=== PATIENT | male | born 1975 | race Caucasian/White ===

== ENCOUNTER 2019-02-19 22:18 | Observation (INO) ==
[2019-02-19] MEDS ORDERED: NS 1,000 ML IV ONE ×3 (22:27→23:58)
--- NOTE | 2019-02-19 22:46 | PROVIDER DOCUMENTATION ---
This chart was entered by Alisia Cano Scribe, acting as scribe for Samir Hernandez MD. HPI-Syncope/Dizziness - General Chief Complaint: Fall Stated Complaint: FALL Time Seen by Provider: 02/19/19 22:21 Source: patient, family Allergies/Adverse Reactions: Patient Allergies Allergy/AdvReac Type Severity Reaction Status Date / Time No Known Allergies Allergy Verified 02/19/19 22:27 Home Medications: Home Medication List Medication Instructions Recorded Confirmed Last Taken Type Aspirin 162 mg PO DAILY 01/30/14 02/19/19 Unknown History Esomeprazole [Nexium] 40 mg PO DAILY 01/30/14 02/19/19 Unknown History Metoprolol Succinate E.r. [Toprol 25 mg PO DAILY 01/30/14 02/19/19 Unknown History Xl] - History of Present Illness-Syncope/Dizzy Nature of Presenting Problem: pt is a 43 yowm c/o dizziness, vomiting, intermittent fever, mild cough, syncope w/fall and lac to rt eye and large hematoma on occipital. pt sts he took nyquil tongiht. pt is hypotensive. triage note sts sts pt had 3 episodes of syncope today. pt is clammy. Prior Episodes: reports: multiple episodes today Onset/Duration: reports: unsure Timing: reports: still present Symptoms prior to episode: reports: nausea/vomiting. denies: chest pain Context: reports: lost consciousness Loss of Consciousness: unsure Location of injury. (If syncope resulted in an injury.): reports: head (rt eye, large hematoma occipital) Current Symptoms: reports: sweaty (clammy, hypotensive) - Dizziness Severity in ED: reports: moderate Dizziness Related Current/Associated Symptoms: reports: dizzy Any recent trauma/injury?: reports: to head (rt eye lac, large hematoma occipital) Patient usually:: reports: walks without assistance Review of Systems - Adult - REVIEW OF SYSTEMS - ADULT Constitutional: reports: see HPI, fever (intermittent), other (diaphoresis). denies: fatique, night sweats Eyes: reports: see HPI, other (lac rt eye). denies: discharge, double vision, eye pain Ears, Nose, Mouth & Throat: reports: no symptoms reported Cardiovascular: reports: no symptoms reported. denies: chest pain, irregular heart rate, palpitations Respiratory: reports: see HPI, cough. denies: pleurisy, shortness of breath, wheezing Gastrointestinal: reports: see HPI, vomiting. denies: abdominal pain, diarrhea, nausea, rectal bleeding Genitourinary: reports: no symptoms reported. denies: dysuria, discharge, hesitency Musculoskeletal: reports: no symptoms reported Integumentary: reports: see HPI, other (large hematoma occipital). denies: skin sores/ulcer, skin thickening Neurological: reports: see HPI, dizziness/vertigo, loss of balance, syncope (x3) . denies: numbness, paresthesia, tremors Psychiatric: reports: no symptoms reported Endocrine: reports: no symptoms reported Hematologic/Lymphatic: reports: no symptoms reported Allergic/Immunologic: reports: no symptoms reported All Other Systems: Reviewed and Negative Past History - Adult - PAST MEDICAL HISTORY-ADULT Review of Records: reports: Nursing Assessment Review, Medications Reviewed, Social history reviewed & non-contributory. Major Childhood Illnesses: reports: denies history Cardiovascular: reports: other (irreg heart rhythm) Respiratory: reports: denies history Gastrointestinal: reports: denies history Obstetrical/Gynecological: reports: denies history Genitourinary: reports: denies history Musculoskeletal: reports: denies history Neurological: reports: denies history Endocrine/Immune: reports: denies history Other Conditions: reports: denies history - PRIOR SURGERIES/PROCEDURES Surgical/Procedure History: reports: none - IMMUNIZATION STATUS Childhood Immunizations: See Nurse Assessment Flu Vaccine: See Nurse Assessment - FAMILY HISTORY Family History: reviewed, not pertinent - SOCIAL HISTORY Smoking: non-smoker Substance Use: none/never Physical Exam-General - PHYSICAL EXAM-ADULT Initial Vital Signs Reviewed: Yes - CONSTITUTIONAL General Appearance: mild distress, obese, slow to respond. negative: cachetic, anxious, combative - EYES Eyes: PERRL/EOMI, photophobia (bilat). negative: conjuctival exudate, subconjunctival hemorrhage, sunken eyes - HEAD, EARS, NOSE, MOUTH & THROAT HENMT: moist mucous membranes, other (semimoist mucous membranes, tenderness and swelling over posterior scalp) - NECK Neck: non-tender, full range of motion, supple, normal inspection - RESPIRATORY Respiratory: chest non-tender, lungs clear, normal breath sounds - CARDIOVASCULAR Cardiovascular: normal peripheral pulses, regular rate, rhythm - GASTROINTESTINAL (ABDOMEN) Abdominal Exam: normal bowel sounds, non tender, soft - MUSCULOSKELETAL Back Exam: normal inspection Extremity: normal range of motion, non-tender, normal inspection - SKIN Integumentary: normal color, normal turgor, diaphoresis, laceration(s) (rt eye), other (large hematoma occipital). negative: warm/dry - NEUROLOGIC Neurologic: grossly normal, no motor/sensory deficits - PSYCHIATRIC Psych/Mental Status: normal mood/affect, normal thought content, normal thought process, oriented x 3 Progress - PLAN OF CARE/RESULTS Progress/Plan/Lab Results: Vital Signs - 8 hr 02/19/19 22:24 02/19/19 22:51 Temperature 97.8 F 99.7 F H Pulse Rate 70 Respiratory Rate 16 Blood Pressure 99/64 O2 Sat by Pulse Oximetry 90 L Laboratory Results - last 24 hr 02/19/19 02/19/19 02/19/19 22:25 22:25 22:25 WBC 8.29 RBC 6.15 H Hgb 14.1 Hct 43.5 MCV 70.7 L MCH 22.9 L MCHC 32.4 L RDW Std Deviation 16.4 H Plt Count 221 MPV 11.1 H Immature Gran % (Auto) 0.4 Neut % (Auto) 61.4 Lymph % (Auto) 17.0 L [place] % (Auto) 13.4 H Eos % (Auto) 7.2 Baso % (Auto) 0.6 Immature Gran # (Auto) 0.03 Neut # (Auto) 5.09 Lymph # (Auto) 1.41 [place] # (Auto) 1.11 H Eos # (Auto) 0.60 Baso # (Auto) 0.05 Specimen Type Sample Site pH pCO2 pO2 HCO3 Base Excess Oxyhemoglobin ABG O2 Sat (Calculated) ABG O2 Saturation ABG Carboxyhemoglobin ABG Methemoglobin [place] Test A-a O2 Difference Total Hemoglobin Lactate Liter Flow Blood Gas Modality FiO2 % Sodium 135 L Potassium 4.2 Chloride 105 Carbon Dioxide 20 L Anion Gap 10 BUN 14 Creatinine 0.8 Estimated GFR/1.73 m2 > 60 BUN/Creatinine Ratio 18 Glucose 136 H Calculated Osmolality 273 Calcium 8.8 Magnesium Total Bilirubin 0.30 AST 22 ALT 18 Alkaline Phosphatase 72 Creatine Kinase Troponin T < 0.010 Total Protein 6.8 Albumin 4.3 Globulin 3.0 Albumin/Globulin Ratio 2.0 Plasma Lactate Urine Source Urine Color Urine Turbidity Urine pH Ur Specific [place] Urine Protein Ur Glucose (Stick) Ur Ketones (Stick) Urine Blood Urine Nitrite Urine Bilirubin Urobilinogen Dipstick Urine Leukocytes Urine WBC (Auto) Urine RBC (Auto) U Epithel Cells (Auto) Urine Bacteria (Auto) Urine Opiates Screen Ur Oxycodone Screen Urine Methadone Screen U Propoxyphene Qual Ur Barbituates Screen Ur Tricyclics Screen Ur Phencyclidine Scrn Ur Amphetamines Screen U Methamphetamines Scrn U Benzodiazepines Scrn Urine Cocaine Screen U Cannabinoids Screen Plasma/Serum Ethyl Alc Influenza A (Rapid) Influenza B (Rapid) Blood Type Antibody Screen 02/19/19 02/19/19 02/19/19 22:25 22:25 22:25 WBC RBC Hgb Hct MCV MCH MCHC RDW Std Deviation Plt Count MPV Immature Gran % (Auto) Neut % (Auto) Lymph % (Auto) [place] % (Auto) Eos % (Auto) Baso % (Auto) Immature Gran # (Auto) Neut # (Auto) Lymph # (Auto) [place] # (Auto) Eos # (Auto) Baso # (Auto) Specimen Type Sample Site pH pCO2 pO2 HCO3 Base Excess Oxyhemoglobin ABG O2 Sat (Calculated) ABG O2 Saturation ABG Carboxyhemoglobin ABG Methemoglobin [place] Test A-a O2 Difference Total Hemoglobin Lactate Liter Flow Blood Gas Modality FiO2 % Sodium Potassium Chloride Carbon Dioxide Anion Gap BUN Creatinine Estimated GFR/1.73 m2 BUN/Creatinine Ratio Glucose Calculated Osmolality Calcium Magnesium 1.8 Total Bilirubin AST ALT Alkaline Phosphatase Creatine Kinase 98 Troponin T Total Protein Albumin Globulin Albumin/Globulin Ratio Plasma Lactate 0.8 Urine Source Urine Color Urine Turbidity Urine pH Ur Specific [place] Urine Protein Ur Glucose (Stick) Ur Ketones (Stick) Urine Blood Urine Nitrite Urine Bilirubin Urobilinogen Dipstick Urine Leukocytes Urine WBC (Auto) Urine RBC (Auto) U Epithel Cells (Auto) Urine Bacteria (Auto) Urine Opiates Screen Ur Oxycodone Screen Urine Methadone Screen U Propoxyphene Qual Ur Barbituates Screen Ur Tricyclics Screen Ur Phencyclidine Scrn Ur Amphetamines Screen U Methamphetamines Scrn U Benzodiazepines Scrn Urine Cocaine Screen U Cannabinoids Screen Plasma/Serum Ethyl Alc Influenza A (Rapid) Influenza B (Rapid) Blood Type Antibody Screen 02/19/19 02/19/19 02/19/19 22:25 22:25 22:35 WBC RBC Hgb Hct MCV MCH MCHC RDW Std Deviation Plt Count MPV Immature Gran % (Auto) Neut % (Auto) Lymph % (Auto) [place] % (Auto) Eos % (Auto) Baso % (Auto) Immature Gran # (Auto) Neut # (Auto) Lymph # (Auto) [place] # (Auto) Eos # (Auto) Baso # (Auto) Specimen Type Sample Site pH pCO2 pO2 HCO3 Base Excess Oxyhemoglobin ABG O2 Sat (Calculated) ABG O2 Saturation ABG Carboxyhemoglobin ABG Methemoglobin [place] Test A-a O2 Difference Total Hemoglobin Lactate Liter Flow Blood Gas Modality FiO2 % Sodium Potassium Chloride Carbon Dioxide Anion Gap BUN Creatinine Estimated GFR/1.73 m2 BUN/Creatinine Ratio Glucose Calculated Osmolality Calcium Magnesium Total Bilirubin AST ALT Alkaline Phosphatase Creatine Kinase Troponin T Total Protein Albumin Globulin Albumin/Globulin Ratio Plasma Lactate Urine Source Urine Color Urine Turbidity Urine pH Ur Specific [place] Urine Protein Ur Glucose (Stick) Ur Ketones (Stick) Urine Blood Urine Nitrite Urine Bilirubin Urobilinogen Dipstick Urine Leukocytes Urine WBC (Auto) Urine RBC (Auto) U Epithel Cells (Auto) Urine Bacteria (Auto) Urine Opiates Screen Ur Oxycodone Screen Urine Methadone Screen U Propoxyphene Qual Ur Barbituates Screen Ur Tricyclics Screen Ur Phencyclidine Scrn Ur Amphetamines Screen U Methamphetamines Scrn U Benzodiazepines Scrn Urine Cocaine Screen U Cannabinoids Screen Plasma/Serum Ethyl Alc Influenza A (Rapid) POSITIVE A Influenza B (Rapid) NEGATIVE Blood Type A POSITIVE Antibody Screen NEGATIVE 02/19/19 02/19/19 02/19/19 22:45 22:45 23:40 WBC RBC Hgb Hct MCV MCH MCHC RDW Std Deviation Plt Count MPV Immature Gran % (Auto) Neut % (Auto) Lymph % (Auto) [place] % (Auto) Eos % (Auto) Baso % (Auto) Immature Gran # (Auto) Neut # (Auto) Lymph # (Auto) [place] # (Auto) Eos # (Auto) Baso # (Auto) Specimen Type ARTERIAL Sample Site R RADIAL pH 7.41 pCO2 38 pO2 81 HCO3 24.6 Base Excess -0.3 Oxyhemoglobin 94.3 L ABG O2 Sat (Calculated) 18.1 ABG O2 Saturation 96.9 ABG Carboxyhemoglobin 1.60 ABG Methemoglobin 1.1 [place] Test YES A-a O2 Difference 85.0 Total Hemoglobin 13.6 Lactate 0.60 Liter Flow 2.5 Blood Gas Modality [place] FiO2 % 30.0 Sodium Potassium Chloride Carbon Dioxide Anion Gap BUN Creatinine Estimated GFR/1.73 m2 BUN/Creatinine Ratio Glucose Calculated Osmolality Calcium Magnesium Total Bilirubin AST ALT Alkaline Phosphatase Creatine Kinase Troponin T Total Protein Albumin Globulin Albumin/Globulin Ratio Plasma Lactate Urine Source CLEAN CATCH Urine Color YELLOW Urine Turbidity CLEAR Urine pH 8.0 Ur Specific [place] 1.026 Urine Protein TRACE A Ur Glucose (Stick) NEGATIVE Ur Ketones (Stick) NEGATIVE Urine Blood NEGATIVE Urine Nitrite NEGATIVE Urine Bilirubin NEGATIVE Urobilinogen Dipstick NORMAL Urine Leukocytes NEGATIVE Urine WBC (Auto) <10 Urine RBC (Auto) <10 U Epithel Cells (Auto) <10 Urine Bacteria (Auto) NEGATIVE Urine Opiates Screen NONE DETECTED Ur Oxycodone Screen NONE DETECTED Urine Methadone Screen NONE DETECTED U Propoxyphene Qual NONE DETECTED Ur Barbituates Screen NONE DETECTED Ur Tricyclics Screen NONE DETECTED Ur Phencyclidine Scrn NONE DETECTED Ur Amphetamines Screen NONE DETECTED U Methamphetamines Scrn NONE DETECTED U Benzodiazepines Scrn NONE DETECTED Urine Cocaine Screen NONE DETECTED U Cannabinoids Screen NONE DETECTED Plasma/Serum Ethyl Alc Influenza A (Rapid) Influenza B (Rapid) Blood Type Antibody Screen Orders Category Date Time Status Admit - [facility] Routine AdmDCTranf 02/19/19 23:58 Active Activity - Strict Bedrest ORDERED Care 02/19/19 23:58 Active Cardiac Monitoring DIRECTED Care 02/19/19 22:24 Active Core Temperature ORDERED Care 02/19/19 22:28 Active FSBS/Accucheck Result NOW Care 02/19/19 22:27 Active Kam Cath Insertion ORDERED Care 02/19/19 22:53 Active Neurological Check Q4H Care 02/20/19 00:04 Active Oxygen Therapy- ED Nursing DIRECTED Care 02/19/19 23:57 Active Resuscitation Status Routine Care 02/19/19 23:58 Ordered Z-Document. for Tele Applied ORDERED Care 02/20/19 00:04 Active NPO Diet 02/20/19 00:05 Active CHEST-PORTABLE [RAD] Stat Exams 02/19/19 22:[address] HEAD W/O CONTRAST [CT] Stat Exams 02/19/19 22:40 Taken ABG [RESP] Routine Lab 02/19/19 23:48 Ordered ALCOHOL BLOOD Stat Lab 02/19/19 22:25 Completed BLOOD CULTURE [BLDCUL] Stat Lab 02/19/19 22:29 Ordered CBC WITH ELECTRONIC DIFF [HEME] Stat Lab 02/19/19 22:25 Completed CK PROFILE [SP CHEM] Stat Lab 02/19/19 22:25 Completed CMP [COMPREHENSIVE METABOLIC PANEL] [CHEM] Stat Lab 02/19/19 22:[address] Stat Lab 02/19/19 22:35 Completed LACTATE, PLASMA [CHEM] Stat Lab 02/19/19 22:25 Completed MAGNESIUM [CHEM] Stat Lab 02/19/19 22:25 Completed TROPONIN T Stat Lab 02/19/19 22:25 Completed TYPE & SCREEN [BBK] Stat Lab 02/19/19 22:25 Completed URINALYSIS W/POSS RFLX CULT [URINALYSIS] Stat Lab 02/19/19 22:45 Completed URINE DRUG SCREEN PL Stat Lab 02/19/19 22:45 Completed 0.9% Sodium Chloride Inj [Ns] 1,000 ml Med 02/19/19 23:58 Active IV 125 mls/hr 0.9% Sodium Chloride Inj [Ns] 1,000 ml Med 02/19/19 22:27 Discontinued IV 999 mls/hr 0.9% Sodium Chloride Inj [Ns] 1,000 ml Med 02/19/19 23:28 Active IV 999 mls/hr Acetaminophen [Tylenol] Med 02/19/19 23:58 Active 650 mg PO Q6H PRN PRN Ibuprofen [Motrin] Med 02/19/19 23:34 Discontinued 600 mg PO NOW ONE Levofloxacin 750 mg/D5w [Levaquin 750 mg/D5w] Med 02/19/19 23:48 Active 750 mg in 150 ml IV NOW Ondansetron [Zofran] Med 02/19/19 23:58 Ordered 4 mg IV Q4H PRN PRN Oseltamivir [Tamiflu] Med 02/20/19 09:00 Ordered 75 mg PO BID Oseltamivir [Tamiflu] Med 02/19/19 23:29 Discontinued 75 mg PO NOW ONE Piperacillin/Tazobactam [Zosyn] 3.375 gm Med 02/19/19 23:58 Active 0.9% Sodium Chloride Inj [Ns] 50 ml IV NOW Oxygen Device Routine Oth 02/20/19 00:04 Active Pulse Oximetry Stat Oth 02/20/19 00:06 Active Telemetry [OM.EQ] Routine Oth 02/19/19 23:58 Active EKG [EKG] Stat Ther 02/19/19 22:27 Ordered Transfer/Admit Order [TRANSFER] Routine Transfer 02/20/19 00:06 Ordered Result Diagrams: 02/19/19 22:25 02/19/19 22:25 - EKG 1 Time of EKG reading by physician:: 22:36 EKG Read and Signed by:: Samir Hernandez EKG Interpretation (*Must complete 3 of following elements*): Normal Rate: 82 Rhythm: NSR w/SA [place]: normal QRS: normal [place] Interval: normal ST Wave: normal - XRAY 1 XRAY Study: Chest Impression: Abnormal, See EMR Report (Impression: 1. rt lower lobe infiltrate) - CT/MRI 1 CT Study: Head CT Results: NAD - CONSULTS/PCP/HOSPITALIST Notification #1 *Consult/PCP/Hospitalist*: Dr. Martinez, hospitalist Time Discussed: 23:50 Reason/Comments: start IV Zosyn Consult Disposition: Admit Departure - Departure Date of Disposition Decision: 02/20/19 Time of Disposition Decision: 00:09 DIAGNOSIS: Influenza A Pneumonia Qualifiers: Pneumonia type: due to unspecified organism Laterality: right Lung location: lower lobe of lung Qualified Code(s): J18.1 - Lobar pneumonia, unspecified organism Altered mental status Qualifiers: Altered mental status type: unspecified Qualified Code(s): R41.82 - Altered mental status, unspecified Disposition: ADMITTED INPATIENT 09 Certified Medical Emergency: Emergent Condition: Stable Referrals and Follow-Ups: None,PCP [Primary Care Provider] - - Critical Care Note This patient required my direct & personal management of CC.: No Attestation - Physician/ ORI Attestation Patient care was provided by Advanced Practice Provider:: No The physician spent face to face time with patient:: Yes Advanced Practice Provider documentation review:: Supervising physician onsite and consulted in the evaluation and care of this patient. The physician did have a face to face encounter with the patient. This chart was documented by the indicated scribe, (Alisia Cano Scribe) and accurately reflects the services I performed and decisions made by me, Samir Hernandez MD, as attested by the provider's signature.
[2019-02-19 22:51] LABS: BASO# 0.05 X1000 (0.0-0.2); BASO% 0.6 % (0.0-0.8); EOS% 7.2 % (0.0-10.0); HEMATOCRIT 43.5 % (42.0-52.0); HEMOGLOBIN 14.1 g/dL (14.0-18.0); IMM GRAN# 0.03 X1000 (0.0-0.04); IMM GRAN% 0.4 % (0.0-0.5); LYMPH# 1.41 X1000 (1.2-3.4); MCH 22.9 PG (27-31); MCHC 32.4 g/dL (33-37); MCV 70.7 FL (81-99); MONO# 1.11 X1000 (0.11-0.59); MONO% 13.4 % (1.7-9.3); MPV 11.1 FL (7.4-10.4); NEUT# 5.09 X1000 (1.4-6.5); NEUT% 61.4 % (42.2-75.2); PLT 221 X1000 (130-400); RBC 6.15 XMIL (4.7-6.1); RDW 16.4 % (11.5-14.5); WBC 8.29 X1000 (4.8-10.8)
[2019-02-19 22:56] LABS: URINE SOURCE CLEAN CATCH
[2019-02-19 23:04] LABS: AGAP 10; ALBUMIN 4.3 g/dL (3.5-5.0); ALKALINE PHOSPHATASE 72 U/L (32-122); BUN 14 mg/dL (8-22); CALCIUM 8.8 mg/dL (8.8-10.2); CHLORIDE 105 mmol/L (98-107); COSMO 273; CREATININE 0.8 mg/dL (0.7-1.2); ESTIMATED GFR > 60; GLUCOSE 136 mg/dL (70-104); GOT 22 U/L (10-34); GPT 18 U/L (10-44); POTASSIUM 4.2 mmol/L (3.5-5.1); SODIUM 135 mmol/L (136-145); TCO2 20 mmol/L (25-35); TOTAL PROTEIN 6.8 g/dL (6.3-8.3)
[2019-02-19 23:15] LABS: BILIRUBIN URINE NEGATIVE (NEGATIVE); BLOOD URINE NEGATIVE (NEGATIVE); COLOR YELLOW; GLUCOSE URINE NEGATIVE (NEGATIVE); KETONE URINE NEGATIVE (NEGATIVE); LEUKOCYTES URINE NEGATIVE (NEGATIVE); NITRITE URINE NEGATIVE (NEGATIVE); PROTEIN URINE TRACE mg/dL (NEGATIVE); SP GRAVITY URINE 1.026; TURBIDITY URINE CLEAR (CLEAR); UROBILINOGEN URINE NORMAL (NORMAL)
[2019-02-19 23:16] LABS: UR EPITHELIAL CELLS <10 /HPF (<10); URINE BACTERIA NEGATIVE /HPF; URINE RBC <10 /HPF (<10); URINE WBC <10 /HPF (<10)
[2019-02-19 23:17] LABS: UR AMPHETAMINES QUAL NONE DETECTED (NONE DETECT); UR BARBITUATES QUAL NONE DETECTED (NONE DETECT); UR BENZODIAZEPIN QUAL NONE DETECTED (NONE DETECT); UR CANNABINOIDS QUAL NONE DETECTED (NONE DETECT); UR COCAINE QUAL NONE DETECTED (NONE DETECT); UR METHADONE QUAL NONE DETECTED (NONE DETECT); UR METHAMPHETAMINE QUAL NONE DETECTED (NONE DETECT); UR OPIATES QUAL NONE DETECTED (NONE DETECT); UR OXYCODONE QUAL NONE DETECTED (NONE DETECT); UR PCP QUAL NONE DETECTED (NONE DETECT); UR PROPOXYPHENE QUAL NONE DETECTED (NONE DETECT); UR TCA QUAL NONE DETECTED (NONE DETECT)
[2019-02-19 23:21] LABS: INFLUENZA A POSITIVE (NEGATIVE); INFLUENZA B NEGATIVE (NEGATIVE)
[2019-02-19] MEDS ORDERED: TAMIFLU PO ONE (23:29)
[2019-02-19] MEDS ORDERED: MOTRIN PO ONE (23:34)
[2019-02-19] MEDS ORDERED: LEVAQUIN 750 MG/D5W 750 MG/150 ML IVPB IV ONE (23:48)
[2019-02-19] MEDS ORDERED: ZOFRAN IV PRN (23:58)
[2019-02-19] MEDS ORDERED: TYLENOL PO PRN (23:58)
[2019-02-19] MEDS ORDERED: ZOSYN 3.375 GM in NS 50 ML IV ONE (23:58)
[2019-02-20 00:04] LABS: BE -0.3 mmoll (-3.0-3.0); BLOOD TYPE ARTERIAL; HCO3-(ACT) 24.6 mmoll (20.0-26.0); METHB 1.1 % (0.0-1.5); O2(CT) 18.1 mL/dL (15.0-23.0); O2HB 94.3 % (95.0-99.0); PCO2(98.6) 38 mmHg (35-45); PO2(98.6) 81 mmHg (60-100); SAMPLE BLOOD; SAO2 96.9 % (95.0-100.0); THB 13.6 g/dL (11.5-17.4); pH(98.6) 7.41 (7.35-7.45)
[2019-02-20 00:07] LABS: ALLEN TEST YES; MODALITY CANNULA
--- NOTE | 2019-02-20 01:04 | EKG Report ---
Test Performed on : 02/19/2019 10:35:53 PM Test Reason : pain Blood Pressure : / mmHG Vent. Rate : 082 BPM Atrial Rate : 082 BPM P-R Int : 168 ms QRS Dur : 090 ms QT Int : 378 ms P-R-T Axes : 046 040 057 degrees QTc Int : 441 ms Normal sinus rhythm. with sinus arrhythmia. Normal ECG When compared with ECG of 26-JUL-2015 14:01, No significant change was found Unconfirmed Result
--- NOTE | 2019-02-20 06:53 | Diag Imaging Result Doc PS360 ---
EXAM: CT HEAD W/O CONTRAST - 02/19/2019 HISTORY: head injury with decreased LOC TECHNIQUE: CT head without contrast COMPARISON: None. FINDINGS: There is no evidence of intracranial hemorrhage, mass effect, midline shift, or hydrocephalus. There is no evidence of infarct, although acute infarcts may not be immediately visible. There is no evidence of skull fracture. There is paranasal sinus disease noted with mild mucosal thickening in bilateral ethmoids and fluid in the visualized superior most right maxillary sinus. The visualized mastoid air cells are clear. IMPRESSION: No visible acute intracranial abnormality. No evidence of intracranial injury. There is some paranasal sinus disease noted at the right maxillary sinus and bilateral ethmoids. The on-call radiologist provided preliminary results at 11:42 PM on 02/19/2019. This exam was performed using automated exposure control, adjustment of mA or kV according to patient size, and/or use of iterative reconstruction technique. Electronically signed by Jeison Hope 02/20/2019 6:50 AM
--- NOTE | 2019-02-20 07:18 | Diag Imaging Result Doc PS360 ---
EXAM: CHEST-PORTABLE - 02/19/2019 HISTORY: diaphoresis, dizziness TECHNIQUE: Portable chest COMPARISON: 07/26/2015 FINDINGS: Inspiration is somewhat shallow. Allowing for inspiration, lungs appear grossly clear. There is no consolidation, pleural effusion, or pneumothorax identified. Heart size appears normal. IMPRESSION: Somewhat shallow inspiration. No other evidence of acute disease. Electronically signed by Jeison Hope 02/20/2019 7:16 AM
[2019-02-20] MEDS: TAMIFLU PO SCH ×2 (09:25→20:07)
[2019-02-20] MEDS ORDERED: DUONEB (A & A) INH PRN (09:40)
[2019-02-20] MEDS ORDERED: NEXIUM PO SCH (09:45)
[2019-02-20] MEDS: BACTROBAN OINTMENT TOP SCH ×2 (10:33→20:07)
[2019-02-20] MEDS: ASPIRIN PO SCH (10:35)
[2019-02-20] MEDS: TOPROL XL PO SCH (10:35)
[2019-02-20] MEDS: NS 1,000 ML IV SCH (10:36)
[2019-02-20 11:03] LABS: HEMOGLOBIN A1C 5.7 % (4.8-6.0)
[2019-02-20 11:19] LABS: FREE T4 0.84 ng/dL (0.93-1.70); TSH 0.63 uIUmL (0.27-4.20)
--- NOTE | 2019-02-20 12:05 | EKG Report ---
Test Performed on : 02/20/2019 11:18:34 AM Test Reason : syncope Blood Pressure : / mmHG Vent. Rate : 074 BPM Atrial Rate : 074 BPM P-R Int : 176 ms QRS Dur : 090 ms QT Int : 384 ms P-R-T Axes : 047 043 046 degrees QTc Int : 426 ms Normal sinus rhythm. Normal ECG When compared with ECG of 19-FEB-2019 22:35, (Unconfirmed) No significant change was found Confirmed by Amos Rodriguez MD ([id number]) on 02/23/2019 9:31:46 PM
--- NOTE | 2019-02-20 13:09 | ECHO REPORT ---
ORDER DATE: 02/20/2019 MEASUREMENTS: 1. Septal thickness 1.1. 2. Left ventricular internal diameter end-diastole 5. 3. Posterior wall thickness 1.1. 4. Left atrium 4.2. 5. Right atrium, 3.7. 6. Aortic root 3.4. 7. Left atrium 4. SUMMARY: 1. Very difficult study for interpretation due to very limited acoustic window quality. 2. Aortic valve is not well imaged, but appears to open adequately on 2-dimensional images. Peak gradient across aortic valve is less than 10 mmHg. Mitral and tricuspid valves are without gross structural abnormality. Pulmonic valve is not well demonstrated. Aortic root is normal size. 3. Grossly normal left ventricular dimensions demonstrated. Estimated left ejection fraction appears to be at least 55%. No obvious wall motion abnormality can be appreciated. Left atrium is borderline enlarged. Right atrium and right ventricle are grossly normal in size with grossly preserved right ventricular systolic function. 4. No pericardial effusion. 5. Appearance of inferior vena cava suggests normal central venous pressure. cc: MD Patricia Adkins CRNP
--- NOTE | 2019-02-20 15:49 | Vascular Study Report ---
EXAM: Carotid Ultrasound - 02/20/2019 HISTORY: syncope TECHNIQUE: Carotid flow studies COMPARISON: None. FINDINGS: There is no substantial atherosclerotic plaquing identified in the right carotid system. Maximum systolic velocity in the right internal carotid is 64 cm/s, and maximum diastolic velocity is 27 cm/s. The right internal to common carotid systolic velocity ratio is 0.5. The flow velocities and ratio are consistent with 0-39% stenosis at the right internal carotid. The right vertebral demonstrates antegrade flow. There is no substantial atherosclerotic plaque identified in the left carotid system. Maximum systolic velocity in the left internal carotid is 65 cm/s, and maximum diastolic velocity is 26 cm/s. The left internal to common carotid systolic velocity ratio is 0.4. The flow velocities and ratio are consistent with 0-39% stenosis at the left internal carotid. The left vertebral demonstrates antegrade flow. IMPRESSION: 0-39% stenosis at right internal carotid. 0-39% stenosis at left internal carotid. Electronically signed by Jeison Hope 02/20/2019 3:46 PM
--- NOTE | 2019-02-20 18:00 | HISTORY AND PHYSICAL ---
PRIMARY CARE PROVIDER: None. PRIMARY PET CARE ASSOCIATE: Dr. Butcher. CHIEF COMPLAINT: Passed out, head congestion, fever and body aches. HISTORY OF PRESENT ILLNESS: Mr. William Chiang is a 43-year-old male with a medical history of atrial fibrillation, hypertension and GERD, who is now here with 3 syncopal spells at home. He states that symptoms started on Saturday afternoon of head congestion, body aches and fever. Then yesterday when he had tried to get up, he hit the floor. According to the notes from the , he had done this 3 separate times, and she called 911. He does not really remember this. He has a very small head laceration above the right eyebrow. No other head injuries noted. He did test positive for the flu, influenza A, and has been started on Tamiflu. There is an old echocardiogram that was performed in 2014. It showed an ejection fraction of 50%, but did also show a slightly dilated left ventricle, so we will go ahead and get an echocardiogram to re- evaluate heart function and heart size. We will get a carotid ultrasound. Continue him on some IV fluids. Hopefully he can be discharged tomorrow. PAST MEDICAL HISTORY: 1. GERD. 2. Hypertension. 3. Paroxysmal atrial fibrillation, only on aspirin and beta-sherry. 4. Slightly dilated left ventricle with preserved heart function from 2015. PAST SURGICAL HISTORY: 1. Back surgery. 2. Lazy eye surgery at the age of 7. SOCIAL HISTORY: He quit smoking in 2000. He started smoking at age 18, was less than 1 pack per day. He works for the [employer]. with children. FAMILY HISTORY: Mother: No medical conditions. Father: Stroke and prostate cancer. ALLERGIES: No known drug allergies. HOME MEDICATIONS: 1. Aspirin 162 mg p.o. daily. 2. Nexium 40 mg p.o. daily. 3. Toprol-XL 25 mg p.o. daily. REVIEW OF SYSTEMS: Fourteen-point review of systems are complete and all were negative except for those mentioned in above HPI. He does have pain in the right eyebrow area and a little headache. He also states he does not remember passing out. He did get nauseated last night after taking his first dose of Tamiflu, and he threw up. PHYSICAL EXAMINATION: VITAL SIGNS: Temperature 98.4 degrees, heart rate 73, respiratory rate 18, blood pressure 149/76, O2 saturation 98% on room air. GENERAL: Mr. William Chiang is a 43-year-old male. He is in no acute distress. He is able to answer questions appropriately. HEENT: Right eyebrow swelling and maybe 1 cm laceration, not significant enough for sutures. There is dry blood and there is some bruising and swelling around the area. Normocephalic. Pupils equal, round and reactive to light. Extraocular movements intact. Mucous membranes are moist. NECK: Trachea midline. CARDIOVASCULAR: S1, S2. Regular rate and rhythm. No rubs, gallops or murmurs. No lower extremity edema. Dorsalis and radial pulses +2. Negative JVD or carotid bruits. PULMONARY: Clear to auscultation, bilateral breath sounds. No accessory muscle use or work of breathing noted. GASTROINTESTINAL: Soft, nontender, nondistended. Positive bowel sounds x4. EXTREMITIES: Moves all extremities equally. Full range of motion. NEUROLOGIC: A and O x3. Follows commands. Sensory is intact. SKIN: Warm, dry and intact, except for above the right eyebrow. LABORATORY DATA: White blood cells 8000, hemoglobin 14, hematocrit 43, platelet count 221,000. ABGs on 2.5 L of oxygen: PH 7.41, pCO2 is 38, pO2 is 81, bicarbonate 24, base excess -0.3, saturation 94%. Lactate 0.6. Sodium 135, potassium 4.2, BUN 14, creatinine 0.8, glucose 136. Hemoglobin A1c is 5.7. Magnesium 1.8, bilirubin 0.30, AST 22, ALT 18. CK 98, troponin less than 0.01. Triglycerides 68, total cholesterol 133. Serum lactate 0.8. TSH 0.63, free T4 is 0.84. Urine drug screen negative. Positive influenza A. Urinalysis: Trace protein. DIAGNOSTIC DATA: EKG: Normal sinus rhythm, rate 82, QTc 441. Chest x-ray: Somewhat shallow inspiration, no acute disease. Head CT: No acute abnormalities. There is some paranasal sinus disease noted in the right maxillary sinus and bilateral ethmoids. Another EKG: Normal sinus rhythm, rate 74, QTc 426. ASSESSMENT AND PLAN: 1. Influenza A. He is almost out of the window for Tamiflu. Tamiflu has been started. It did make him throw up. Antiemetics as needed with medication. 2. Syncope x3. History of mildly dilated left ventricle with a preserved ejection fraction. We will get a repeat echocardiogram today. We will also check carotid ultrasound. 3. History of paroxysmal atrial fibrillation. Continue beta-sherry and aspirin. 4. Right head small laceration. Wound Care consulted. Bactroban ordered twice a day. 5. Gastroesophageal reflux disease. Continue Nexium. 6. Hypertension. Continue beta-sherry. 7. Deep venous thrombosis prophylaxis. Sequential compression devices. Dictated by ADAN Liang for Rickie Burks MD Addendum: Patient seen and examined by myself. Agree with ADAN note. It reflects my assessment and plan. Patient is being admitted to hospital for syncope and influenza. We have ordered echocardiogram and carotid doppler. Will monitor patient closely. cc: ADAN Liang MD [facility]
[2019-02-21] MEDS: NS 1,000 ML IV SCH (00:07)
[2019-02-21 06:04] LABS: BASO# 0.03 X1000 (0.0-0.2); BASO% 0.5 % (0.0-0.8); EOS# 0.65 X1000 (0.0-0.7); EOS% 10.8 % (0.0-10.0); HEMATOCRIT 43.3 % (42.0-52.0); HEMOGLOBIN 13.7 g/dL (14.0-18.0); LYMPH# 1.54 X1000 (1.2-3.4); LYMPH% 25.6 % (20.5-51.1); MCH 22.6 PG (27-31); MCHC 31.6 g/dL (33-37); MCV 71.3 FL (81-99); MONO# 0.85 X1000 (0.11-0.59); MONO% 14.1 % (1.7-9.3); MPV 10.6 FL (7.4-10.4); NEUT# 2.95 X1000 (1.4-6.5); PLT 189 X1000 (130-400); RBC 6.07 XMIL (4.7-6.1); RDW 16.5 % (11.5-14.5); WBC 6.02 X1000 (4.8-10.8)
[2019-02-21 06:27] LABS: AGAP 11; ALBUMIN 3.7 g/dL (3.5-5.0); ALKALINE PHOSPHATASE 63 U/L (32-122); BUN 10 mg/dL (8-22); CALCIUM 8.8 mg/dL (8.8-10.2); CHLORIDE 105 mmol/L (98-107); COSMO 280; CREATININE 0.7 mg/dL (0.7-1.2); ESTIMATED GFR > 60; GLUCOSE 92 mg/dL (70-104); GOT 15 U/L (10-34); GPT 13 U/L (10-44); MAGNESIUM 1.9 mg/dL (1.5-2.7); POTASSIUM 3.9 mmol/L (3.5-5.1); SODIUM 141 mmol/L (136-145); TCO2 25 mmol/L (25-35); TOTAL PROTEIN 6.7 g/dL (6.3-8.3)
[2019-02-21] MEDS ORDERED: NEXIUM PO SCH (07:00)
[2019-02-21 07:10] LABS: EOS 8 % (1-10); LYMPHS 28 % (21-51); MONO 6 % (1-9); SEGS 54 % (42-75)
[2019-02-21 07:14] LABS: ANISOCYTOSIS OCCASIONAL; HYPOCHROM OCCASIONAL; LARGE PLATELETS OCCASIONAL; MICROCYTOSIS OCCASIONAL
[2019-02-21 07:33] VITALS: BP 121/65
[2019-02-21] MEDS: TAMIFLU PO SCH (08:31)
[2019-02-21] MEDS: ASPIRIN PO SCH (08:31)
[2019-02-21] MEDS: TOPROL XL PO SCH (08:32)
[2019-02-21] MEDS: BACTROBAN OINTMENT TOP SCH (08:33)
--- NOTE | 2019-02-22 07:22 | DISCHARGE SUMMARY ---
ADMISSION DATE: 02/19/2019 DISCHARGE DATE: 02/21/2019 DISCHARGE DIAGNOSES: 1. Influenza A on Tamiflu. 2. Syncope x3. 3. History of paroxysmal atrial fibrillation. 4. Right hand small laceration. 5. Gastroesophageal reflux disease. 6. Hypertension. CONSULTATIONS: None. SURGERIES AND PROCEDURES: None. HOSPITAL COURSE: Mr. William Chiang is a 43-year-old male with a medical history of paroxysmal atrial fibrillation, hypertension, and GERD, who was now presenting with 3 syncopal spells at home. Symptoms had started on Saturday prior to presentation with head congestion, body aches and fever. Then the day before being admitted, he had hit the floor 3 times and went to the ER once his called 911 with a right eyebrow laceration that was too small for suturing. However, workup reveals that he did have influenza A, so he was initiated on Tamiflu. Given the syncopal spells, he had an echocardiogram back in 2014 that did show slightly dilated left ventricle. The EF was 50%. So we kept him here, performed echocardiogram and a carotid ultrasound and both were no acute findings. There were no changes in the echo other than it showed that the ventricle was now normal and that his EF was up to 55%. The carotids show that there was either 39% bilaterally, and he felt better today, so he is going to be sent home. DISCHARGE VITAL SIGNS: Temperature 98.1 degrees, heart rate 65, respiratory rate 20, blood pressure 121/65, O2 saturation 100% on room air. DISCHARGE LABORATORY DATA: White blood cells 6000, hemoglobin 13, hematocrit 43, platelet count 189,000. Sodium 141, potassium 3.9, BUN 10, creatinine 0.7, glucose 92. Hemoglobin A1c was 5.7. Calcium 8.8, magnesium 1.9, bilirubin 0.40, AST 15, ALT 13. CK and troponins were negative. Triglycerides 68, total cholesterol 133, HDL is down to 28. Lactate 0.8. TSH 0.63, free T4 0.84. Urine drug screen was negative. Influenza A positive. Micro blood cultures prelim negative. PERTINENT IMAGING: Chest x-ray: Somewhat shallow inspiration, but nothing acute. Head CT: No acute findings. Carotid Doppler: Bilaterally 0%-39%. Echocardiogram: EF 55%, normal ventricles. EKG: Normal sinus rhythm, rate 82, QTc was 441. Repeat EKG: Normal sinus rhythm, rate 74, QTc was 426. DISCHARGE MEDICATIONS: 1. Aspirin 162 mg p.o. daily. 2. Nexium 40 mg p.o. daily. 3. Toprol-XL 25 mg p.o. daily. 4. Tamiflu 75 mg p.o. twice daily for another 4 days. PHYSICIAN FOLLOWUP: He needs to follow up with a primary. DISCHARGE DIET: Heart healthy. DISCHARGE ACTIVITY: As tolerated. DISCHARGE INSTRUCTIONS: If his condition changes, contact physician and/or return to the emergency department. Changes may include, but are not limited to shortness of breath, increased fatigue, excessive bleeding, unexplained weight loss or gain, unmanageable pain, signs or symptoms of infection. Wound care of the right eyebrow laceration: Clean head laceration daily with warm water and mild soap, pat dry with a clean cloth. Apply Bactroban and leave laceration open to air. Notify PCP of any changes of infection, increased swelling, warmth or redness, pus, foul odor, streaking or increased pain at the wound site. DISCHARGE DISPOSITION: Home. Dictated by ADAN Liang for Rickie Burks MD Addendum: Patient seen and examined by myself. Agree with ADAN note. It reflects my assessment and plan. Patient is being discharged in stable condition. Will be seen by PCP in a week. cc: ADAN Liang MD [facility]
== END 2019-02-21 10:35 | disposition home or self-care (01) ==
LOC: P.MEDSURG 22:18 → P.ED 22:18
PROVIDERS: ATTEND Internal Medicine